=== PATIENT | male | born 1990 | race Caucasian/White ===

== ENCOUNTER 2017-06-20 16:34 | Emergency (ER) | payer SELFPAY, MEDICAID ==
[2017-06-20] MEDS: ACETAMINOPHEN 325 MG TAB PO (18:58)
[2017-06-20] MEDS: ONDANSETRON (ODT) 4 MG TAB ODT (18:58)
== END 2017-06-20 20:20 | disposition home or self-care (01) ==
LOC: E/R 16:34 → FTE 20:20
DX: J06.9 Acute upper respiratory infection, unspecified (principal)
CPT/HCPCS: 87400; 87880; 99283